=== PATIENT | female | born 1995 | race African-American/Black ===

== ENCOUNTER 2016-10-12 20:15 | Emergency (ER) | payer OTHER ==
[~2016-10-12] VITALS: Ht 170.2 cm; Wt 56.0 kg
[2016-10-12] MEDS ORDERED: ACETAMINOPHEN 325 MG TAB PO ONE (20:30)
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
[2016-10-12 20:43] VITALS: BP 128/76; PULSE 106; RESP 18; TEMP 98.2; O2SAT 100
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
[2016-10-12] MEDS ORDERED: IBUP-232 PO (22:10)
== END 2016-10-12 22:42 | disposition home or self-care (01) ==
LOC: NEPA 20:15
DX: S09.90XA Unspecified injury of head, initial encounter (principal); S80.01XA Contusion of right knee, initial encounter; V49.40XA Driver injured in collision with unspecified motor vehicles in traffic accident, initial encounter
CPT/HCPCS: 70450; 71010; 72020; 99284; E0113; L0150

== ENCOUNTER 2016-12-06 21:37 | Emergency (ER) | payer SELFPAY ==
[~2016-12-06] VITALS: Ht 170.2 cm; Wt 56.0 kg
[~2016-12-06 21:37] MED LIST: IBUP-232 PO
[2016-12-06 21:40] VITALS: BP 120/70; PULSE 64; RESP 16; TEMP 98.4; O2SAT 99
== END 2016-12-06 22:03 | disposition left against medical advice (07) ==
LOC: NED 21:37
DX: R10.9 Unspecified abdominal pain (principal)
CPT/HCPCS: 99281

== ENCOUNTER 2017-07-16 21:49 | Emergency (ER) | payer SELFPAY ==
[~2017-07-16] VITALS: Ht 167.6 cm; Wt 74.0 kg
[2017-07-16 21:51] VITALS: BP 122/77; PULSE 83; RESP 18; TEMP 97.7; O2SAT 97
[2017-07-16] MEDS ORDERED: NAPR500T2 PO (22:23)
--- NOTE | 2017-07-16 22:23 | PD ---
HPI Chief Complaint: Back/ Neck Pain or Injury Time Seen by Provider: 22:06 Travel History International Travel<30 days: No Contact w/Intl Traveler<30days: No Traveled to known affect area: No History of Present Illness HPI This is a 22-year-old female who presents to the emergency department having been helping a patient transferred to a wheelchair from a bed fell and she caught him. She injured her low back. She has moderate severity pain in her low back, constant, worse with movement, improved with rest. She denies any weakness or numbness and denies any urinary or bowel incontinence. She says her work asked her to come to the emergency department to get checked out. [facility] Past Medical History Immunizations Current: Yes Tetanus Vaccination: Unknown Influenza Vaccination: No ?: Not LMP: 07-06-17 Social History Alcohol Use: No Tobacco Use: No Substance Use: No Allergies-Medications (Allergen,Severity, Reaction): Coded Allergies: No Known Allergies (Unverified Adverse Reaction, Unknown, 07/16/17) Reported Meds & Prescriptions Reported Meds & Active Scripts Active Ibuprofen 600 Mg Tab 600 Mg PO Q6H PRN Review of Systems General / Constitutional: No: Fever, Chills Cardiovascular: No: Chest Pain or Discomfort Physical Exam Narrative GENERAL: Well-appearing, no acute distress, nontoxic SKIN: Warm and dry. HEAD: Atraumatic. Normocephalic. ENT: No nasal bleeding or discharge. Moist mucous membranes MUSCULOSKELETAL: Tender to palpation along the lumbar paraspinal muscles with no focal vertebral tenderness. NEUROLOGICAL: Awake and alert. No obvious cranial nerve deficits. 5 out of 5 strength in the bilateral lower extremities. Sensation is grossly intact. Normal speech. PSYCHIATRIC: Appropriate mood and affect; insight and judgment normal. Data Data Last Documented VS Vital Signs Date Time Temp Pulse Resp B/P (MAP) Pulse Ox O2 Delivery O2 Flow Rate FiO2 07/16/17 21:51 97.7 83 18 122/77 (92) 97 Orders Orders Naproxen (Naprosyn) (07/16/17 22:30) [facility] Medical Decision Making Medical Screen Exam Complete: Yes Emergency Medical Condition: Yes Differential Diagnosis Lumbar strain, herniated disc, sciatica Narrative Course This is a 22-year-old female who presents to the emergency department with lower back pain following helping a patient transfer at her work. She has a very benign exam and appears very comfortable. I think she is appropriate for anti-inflammatories. She has no neurologic deficit and a normal neuro exam. I don't think she requires any imaging given her age. Patient will be discharged home. Diagnosis Primary Impression: Lumbar strain Qualified Codes: S39.012A - Strain of muscle, fascia and tendon of lower back , initial encounter Patient Instructions: General Instructions Additional Instructions: If you develop weakness of your legs, difficulty walking, numbness of your legs or your genital or rectal area, loss of your bowel or bladder, or difficulty urinating return to the emergency department immediately. Followup with your primary care physician in one week if your symptoms have not improved. Med/Other Pt SpecificInfo: Prescription(s) given Scripts Naproxen (Naproxen) 500 Mg Tab 500 MG PO BID Y for PAIN SCALE 4 TO 10, #20 TAB 0 Refills Prov: Annika Goldman MD 07/16/17 Disposition: 01 DISCHARGE HOME Condition: Stable Annika Goldman MD Jul 16, 2017 22:23
[2017-07-16] MEDS ORDERED: NAPROXEN 500 MG TAB PO ONE (22:30)
== END 2017-07-16 22:39 | disposition home or self-care (01) ==
LOC: PHEFT 21:49
DX: S39.012A Strain of muscle, fascia and tendon of lower back, initial encounter (principal); X50.0XXA Overexertion from strenuous movement or load, initial encounter; Y93.F2 Activity, caregiving, lifting; Y99.0 Civilian activity done for income or pay
CPT/HCPCS: 99283

== ENCOUNTER 2017-08-25 19:50 | Emergency (ER) | payer OTHER ==
[~2017-08-25] VITALS: Ht 167.6 cm; Wt 76.0 kg
[~2017-08-25 19:50] MED LIST changes: +NAPR500T2 PO
[2017-08-25 19:52] VITALS: BP 131/78; PULSE 85; RESP 14; TEMP 98.9; O2SAT 96
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
== END 2017-08-25 22:20 | disposition home or self-care (01) ==
LOC: NEPD 19:50
DX: M25.562 Pain in left knee (principal); M25.522 Pain in left elbow; V49.69XA Unspecified car occupant injured in collision with other motor vehicles in traffic accident, initial encounter; Y92.410 Unspecified street and highway as the place of occurrence of the external cause
CPT/HCPCS: 99282